=== PATIENT | female | born 1995 | race Caucasian/White ===

== ENCOUNTER 2021-08-02 17:51 | Emergency (ER) | payer SELFPAY ==
--- NOTE | ~2021-08-02 | CT_ITS ---
EXAMINATION: CT soft tissue neck w con DATE: 08/02/2021 21:11 INDICATION: Right breast pain and swelling, rule out abscess TECHNIQUE: Computed tomography (CT) of the neck was performed with 75 mL Omnipaque-350 intravenous co ntrast. Automated exposure control and iterative reconstruction technique were employed. The dose-ashish gth product was 628.17 mGy-cm. COMPARISON: None FINDINGS: The thyroid gland is unremarkable. The submandibular and parotid glands are symmetric. There is n o cervical lymphadenopathy. There are no masses identified. The superior mediastinum is unremarka ble. The airway is unremarkable. Parapharyngeal and pre-glottic fat planes are preserved. Bovin e arch The orbits are unremarkable. Visualized sinuses and mastoid air cells are well aerated. C alcified granulomas in the right lung. Bones are normal for age. The breasts are incompletely inclu ded in the [id number]. IMPRESSION: 1. Normal CT neck soft tissue findings. 2. The right breast is incompletely imaged and may not include the area of clinical concern. 3. If additional imaging is deemed clinically necessary, ultrasound of the breast would be the modali ty of choice. Reviewed, dictated and finalized at location [facility]. IMPRESSION: 1. Normal CT neck soft tissue findings. 2. The right breast is incompletely imaged and may not include the area of clin ical concern. 3. If additional imaging is deemed clinically necessary, ultrasound of the [address] would be the modality of choice.
[2021-08-02 17:55] VITALS: BP 145/87; PULSE 129; RESP 14; TEMP 37.2; O2SAT 100
[2021-08-02 18:50] LABS: Hematocrit 39.1 % (37.0-47.0); Hemoglobin 12.6 g/dL (12.0-15.0); Mean Corpuscular HGB Conc 32.2 g/dl (32-36); Mean Corpuscular Hemoglobin 28.2 pg (26-34); Mean Corpuscular Volume 87.5 fl (80-100); Mean Platelet Volume 9.4 fl (7.4-10.4); Platelet Count Result 212 k/mm3 (150-375); Red Blood Count 4.47 M/mm3 (4.2-5.4); Red Cell Distribution Width 13.8 % (11.5-14.5); White Blood Count 20.4 K/mm3 (4.5-10.0)
[2021-08-02 18:55] LABS: Add Urine Microscopic? YES; Appearance Urine Cloudy (Clear); Bilirubin Urine Negative (Negative); Blood Urine Negative (Negative); Color Urine Yellow (Yellow); Glucose Urine UA Negative (Negative); Ketones Urine Negative (Negative); Leukocyte Esterase Ur Trace LEU/UL (Negative); Mucus Urine Rare /lpf; Nitrate Urine Negative (Negative); Protein Urine Negative (Negative); RBC Urine 0-2 /hpf (0-2); Specific Grav Ur 1.013 (1.001-1.035); Squamous Epithelial Cell Urine Many /hpf (Few); Urobilinogen Urine Negative mg/dL (<2.0)
[2021-08-02 19:01] LABS: Alanine Aminotransferase 13 U/L (4-35); Albumin Level 4.5 g/dL (3.5-5.1); Alkaline Phosphatase 68 U/L (38-126); Anion Gap 11 mmol/L (8-16); Aspartate Amino Transferase 23 U/L (14-36); Bilirubin,Total 0.5 mg/dL (0.2-1.3); Blood Urea Nitrogen 11 mg/dL (7-17); Calcium 8.7 mg/dL (8.4-10.2); Carbon Dioxide 21 mmol/L (22-30); Chloride 107 mmol/L (98-107); Estimated CRCL calculation 102 ml/min; Estimated Glomerular Filt Rate > 60; Glucose 108 mg/dL (65-110); Potassium 3.7 mmol/L (3.4-5.0); Sodium 139 mmol/L (137-145)
[2021-08-02 19:10] LABS: Band Neutrophils Percent 3 % (0-6); Monocytes Percent Manual 1 % (3-9); Neutrophils Absolute Manual 19.78 K/mm3 (1.7-7.2); Neutrophils Percent Manual 94 % (46-73); Platelet Estimate Adequate (Adequate); Total Cells Counted 100
--- NOTE | 2021-08-02 19:36 | ED.GENADULT ---
HPI - General Adult General Chief complaint: Recheck/Abnormal Lab/Rx Stated complaint: Mastitis, increased WBC Time Seen by Provider: 08/02/21 19:23 History of Present Illness HPI narrative: Patient is a 26-year-old female with a history of recurrent mastitis of the right breast who presents for evaluation of right breast pain and swelling today. Patient states she first developed mastitis 3 months ago after she sustained a nipple tear from a breast pump. She completed a course of dicloxacillin prescribed by her DATA KEYER at that time with good relief of her symptoms. The pain and redness has been intermittent since. She is visiting from out of town, and unfortunately she states the pain returned today. The pain is located in the right upper quadrant of her right breast, and she notes some redness around the inferior aspect. She was seen at an urgent care and was found to have an elevation in her white blood cell count, so she was sent to the ED. Patient states she feels somewhat weak today, but she denies any chills, nausea, vomiting, or other systemic symptoms. She has continued to breast-feed throughout the pain, and denies any bloody breastmilk. Related Data Allergies Allergy/AdvReac Type Severity Reaction Status Date / Time codeine Allergy Hives Verified 08/02/21 17:52 Sulfa (Sulfonamide Allergy Hives Verified 08/02/21 17:52 Antibiotics) Review of Systems Review of Systems: Gen.: Denies fevers or chills Eyes: Denies eye pain or visual change ENT: Denies congestion Respiratory: Denies shortness of breath or cough CV: Denies chest pain or palpitations GI: Denies abdominal pain nausea, emesis or diarrhea denies burning, urgency, frequency or hematuria Musculoskeletal: Reports right breast pain. Denies back pain or muscle pain Neuro: Denies numbness, tingling, weakness or focal weakness Skin: Denies rash Except as documented, all other systems reviewed and negative All systems reviewed & are unremarkable except as noted in HPI and below Exam Narrative: APPEARANCE: Well appearing, no pain in distress, well-nourished. Head: normocephalic and atraumatic. EYES: PERRLA/EOMI, conjunctivae clear NOSE: No nasal drainage EARS: External ear normal in appearance RESPIRATORY: Airway patent, respirations nonlabored. Clear to auscultation bilaterally, no rales, rhonchi, wheezing. CARDIOVASCULAR: Tachycardic. Regular rhythm without murmurs, rubs, or gallops. ABDOMINAL: Normoactive bowel sounds. Soft, nontender, nondistended. No rebound tenderness or guarding. MUSCULOSKELETAL: Right breast is tender to palpation in the right upper quadrant, no palpable induration or fluctuance. There is patchy, pale erythema in the left lower quadrant of her right breast. There is a small tear on the inferior aspect of the nipple. NEURO: Normal speech. No focal neurologic deficits. SKIN: Skin is warm and dry. No rashes. PSYCHIATRIC: Normal affect/mood. Course Vital Signs Vital signs: Vital Signs Temperature 99.0 F 08/02/21 17:55 Pulse Rate 129 H 08/02/21 17:55 Respiratory Rate 14 08/02/21 17:55 Blood Pressure 145/87 H 08/02/21 17:55 Pulse Oximetry 100 08/02/21 17:55 Temperature 99.0 F 08/02/21 17:55 Pulse Rate 125 H 08/02/21 22:34 Respiratory Rate 16 08/02/21 22:34 Blood Pressure 124/68 08/02/21 22:34 Pulse Oximetry 100 08/02/21 22:34 Medical Decision Making MDM Narrative Medical decision making narrative: 26-year-old female with a history of intermittent mastitis on the right, here for increased right breast pain redness and warmth. Seen at urgent care and was found to have a white count of 19, so she was sent to emergency department. Patient tachycardic, right breast obviously warm, erythematous and tender. Patient with leukocytosis to 20.4 with neutrophil predominance, initiated sepsis criteria. Lactate was negative. UA with evidence of UTI; although she is not having voiding symptoms. Unfortunat
[2021-08-02 19:50] VITALS: BP 145/80; PULSE 117; RESP 18; O2SAT 99
[2021-08-02 20:01] VITALS: BP 136/80; RESP 16; O2SAT 98
[2021-08-02] MEDS: SODIUM CHLORIDE 0.9% IV 1,000 ML 999 ML IV CONT ×2 (20:26→22:34)
[2021-08-02 20:50] LABS: Lactic Acid Reflex 1.3 mmol/L (0.7-2.0)
[2021-08-02 21:43] VITALS: BP 136/83; PULSE 112; RESP 18; O2SAT 98
[2021-08-02 22:34] VITALS: BP 124/68; PULSE 125; RESP 16; O2SAT 100
--- NOTE | 2021-08-03 00:31 | PC.NURSE ---
ED PA discussed w/ pt the need for repeat imaging or admission for US in the morning. The pt does not wish to accept either of these options. Risks of decision explained to pt who still wishes to leave AMA and has signed appropriate paperwork. Pt stayed long enough to receive IV antibiotics and will still receive prescription for antibiotics. Pt ambulatory with steady gait.
== END 2021-08-03 00:01 | disposition left against medical advice (07) ==
PROVIDERS: Physician Assistant; Emergency Provider Emergency Medicine
DX: N64.4 Mastodynia (principal); Z88.5 Allergy status to narcotic agent; Z88.2 Allergy status to sulfonamides
CPT/HCPCS: 36415; 70491; 80053; 81001; 81025; 83605; 85025; 87040; 96361; 96365; 99284; J0692; J7030; Q9967